=== PATIENT | female | born 1985 | race Caucasian/White ===

== ENCOUNTER 2022-03-30 13:12 | Emergency (ER) | payer OTHER ==
[2022-03-30 13:19] VITALS: BP 125/88
--- NOTE | 2022-03-30 14:26 | ED Physician Documentation ---
PD HPI LOWER EXT INJURY - Stated complaint Stated Complaint: LT LEG PX/STIFFNESS - Chief complaint Chief Complaint: Ext Problem - History obtained from History obtained from: Patient - History of Present Illness PD HPI LOW EXT INJURY LOCATION: Left, Thigh (and inguinal area) Type of injury: Other (she was doing lift of about 80 lbs, with legs straight (slightly flexed) and bending over. She felt onset of a pain in left inguinal area that extends to left lower abdomen and anterior left thigh, with slight numbness feeling anterior upper thigh.). No: Fall Where injury occurred: Other (working out at gym.) Timing - onset: Yesterday Timing - duration: Days (1) Timing - details: Abrupt onset, Still present Worsened by: Moving (stepping/walking and lifting leg/thigh.) Associated symptoms: Numbness (some numbness/tingling anterior upper thigh. No weakness but hurting with stepping and rotational movement of leg/hip.). No: Weakness Similar symptoms before: Has not had sx before Recently seen: Not recently seen Review of Systems Skin: denies: Rash, Lesions Neurologic: reports: Numbness. denies: Focal weakness PD PAST MEDICAL HISTORY - Past Medical History Musculoskeletal: None - Allergies Allergies/Adverse Reactions: Allergies Allergy/AdvReac Type Severity Reaction Status Date / Time No Known Drug Allergies Allergy Verified 03/30/22 13:19 PD ED PE NORMAL - Vitals Vital signs reviewed: Yes - General General: Alert and oriented X 3, No acute distress, Well developed/nourished - Derm Derm: Normal color, Warm and dry - Extremities Extremities: No edema, No calf tenderness / cord, Other (left inguinal area tender in inguinal canal area without hernia noted with abd muscle tightening. no redness/rash/sores. She is able to flex hip against resistance without pain, but hurts with crossing leg medially and with rotation medially. ) - Neuro Neuro: Alert and oriented X 3, No motor deficit Results - Vitals Vitals: Vital Signs - 24 hr 03/30/22 13:15 Temperature 36.4 C L Heart Rate 62 Respiratory 14 Rate Blood Pressure 125/88 H O2 Saturation 92 Oxygen O2 Source Room air PD Medical Decision Making - ED course Complexity details: considered differential (seems inguinal strain. Consider psoas muscle but not hurting as much with just flexion. more rotational and with stepping, so consider more likely pectineus or sartorius. The injury is putting pressure on anterior femoral cutaneous nerve with the numbness of upper thigh.), d/w patient Departure - Departure Disposition: 01 Home, Self Care Clinical Impression: Strain of left inguinal region Condition: Stable Record reviewed to determine appropriate education?: Yes Instructions: ED Strain Groin Follow-Up: [facility] [Provider Group] Comments: I do not get a sense of hernia nor a more significant problem associated with the pain. It seems like a strain of the ligaments and muscles and through the area. Activity as tolerated but I would go lightly with any lifting or repetitive use such as running or jogging for the next 5 or 6 days. Progress activity as tolerated. Stretching and range of motion are okay for the area. Consider using anti- inflammatory such as ibuprofen 600 mg 3 times daily regularly for the next 6 or 7 days. Add Tylenol if needed for pain. I would anticipate steady improvement over the next week or 2 with resolution in that timeframe. Follow-up with your primary care if not improved at all over the next week to decide any other treatment therapies. Discharge Date/Time: 03/30/22 15:06
[2022-03-30] MEDS ORDERED: IBUPROFEN 600 MG TABLET PO STA (14:49)
== END 2022-03-30 15:06 | disposition home or self-care (01) ==
LOC: ED 13:12
DX: S39.011A Strain of muscle, fascia and tendon of abdomen, initial encounter (principal); X58.XXXA Exposure to other specified factors, initial encounter; Y93.B9 Activity, other involving muscle strengthening exercises
CPT/HCPCS: 99282; A9270

== ENCOUNTER 2022-04-28 09:10 | Outpatient (CLI) | payer OTHER ==
[2022-04-28 19:28] LABS: BASOPHILS # (AUTO) 0.1 10^3/uL (0.0-0.1); BASOPHILS % (AUTO) 1.2 %; EOSINOPHILS # (AUTO) 0.1 10^3/uL (0.0-0.7); EOSINOPHILS % (AUTO) 1.9 %; LYMPHOCYTES # (AUTO) 2.5 10^3/uL (1.5-3.5); LYMPHOCYTES % (AUTO) 43.5 %; MEAN CORPUSCULAR HEMOGLOBIN 27.7 pg (27.0-31.0); MEAN CORPUSCULAR HGB CONC 31.7 g/dL (32.0-36.0); MEAN CORPUSCULAR VOLUME 87.2 fL (81.0-99.0); MEAN PLATELET VOLUME 12.9 fL (7.9-10.8); MONOCYTES # (AUTO) 0.4 10^3/uL (0.0-1.0); MONOCYTES % (AUTO) 6.3 %; NEUTROPHILS # (AUTO) 2.8 10^3/uL (1.5-6.6); NEUTROPHILS % (AUTO) 47.1 %; PLT - PLATELET COUNT 193 10^3/uL (130-450); WHITE BLOOD COUNT 5.8 x10^3/uL (4.8-10.8)
[2022-04-28 19:46] LABS: ALBUMIN 4.1 g/dL (3.2-5.5); ALBUMIN/GLOBULIN RATIO 1.2 (1.0-2.2); BILIRUBIN,TOTAL 0.6 mg/dL (0.2-1.0); CALCIUM 9.6 mg/dL (8.5-10.3); CREATININE 0.7 mg/dL (0.4-1.0); POTASSIUM 4.5 mmol/L (3.5-5.0); TOTAL PROTEIN 7.4 g/dL (6.7-8.2)
[2022-04-28 19:55] LABS: THYROID STIMULATING HORMONE 1.77 uIU/mL (0.34-5.60)
[2022-04-28 19:58] LABS: FERRITIN 16.4 ng/mL (11.0-306.8)
== END 2022-04-28 09:11 | disposition home or self-care (01) ==
LOC: LAB.N 09:10
PROVIDERS: ATTEND Physician Assistant
DX: R53.83 Other fatigue (principal)
CPT/HCPCS: 36415; 80053; 82306; 82728; 83540; 84443; 84466; 85025

== ENCOUNTER 2023-01-14 18:19 | Outpatient (CLI) | payer OTHER ==
--- NOTE | 2023-01-15 16:00 | XRAY Report ---
PROCEDURE: Hip w/Pelvis 2-3V LT INDICATIONS: HIP PAIN, LEFT TECHNIQUE: AP pelvis with lateral view(s) of the left hip(s). COMPARISON: None. FINDINGS: Bones: No fractures or dislocations. No suspicious bony lesions. Mild left hip degenerative arthrit is. Soft tissues: No suspicious soft tissue calcifications or masses. IMPRESSION: Mild left hip degenerative arthritis. Reviewed by: Shelton Downey MD on 01/15/2023 3:59 PM PDT Approved by: Shelton Downey MD on 01/15/2023 3:59 PM PDT Station ID: [id number]
== END 2023-01-14 18:20 | disposition home or self-care (01) ==
LOC: DI 18:19
PROVIDERS: ATTEND Physician Assistant
DX: M16.12 Unilateral primary osteoarthritis, left hip (principal)

== ENCOUNTER 2023-04-24 07:18 | Outpatient (CLI) | payer OTHER ==
--- NOTE | 2023-04-25 09:30 | Ultrasound Report ---
PROCEDURE: Abdomen Limited INDICATIONS: LLQ ABD PAIN TECHNIQUE: Real-time focused scanning was performed of the abdomen, with image documentation. COMPARISONS: None. FINDINGS: The area of subjective pain in the region of the left lower quadrant anterolateral lower abdominal wa ll was interrogated utilizing a high megahertz linear transducer with and without Valsalva. No hernia identified. Mass. IMPRESSION: No hernia or mass is identified corresponding to the area of patient symptoms in the left lower quadr ant Reviewed by: Shelton Downey MD on 04/25/2023 9:28 AM PST Approved by: Shelton Downey MD on 04/25/2023 9:28 AM PST Station ID: [id number]
== END 2023-04-24 07:19 | disposition home or self-care (01) ==
LOC: DI 07:18
PROVIDERS: ATTEND Physician Assistant
DX: R10.32 Left lower quadrant pain (principal); R74.8 Abnormal levels of other serum enzymes
CPT/HCPCS: 36415; 80053; 82977

== ENCOUNTER 2023-04-24 07:33 | Outpatient (CLI) | payer OTHER ==
[2023-04-24 08:14] LABS: ALBUMIN 4.7 g/dL (3.2-5.5); ALBUMIN/GLOBULIN RATIO 1.5 (1.0-2.2); BILIRUBIN,TOTAL 0.4 mg/dL (0.2-1.0); CALCIUM 9.9 mg/dL (8.5-10.3); CREATININE 0.7 mg/dL (0.6-1.3); POTASSIUM 4.3 mmol/L (3.5-4.5); TOTAL PROTEIN 7.9 g/dL (6.4-8.9)
== END 2023-04-24 07:34 | disposition home or self-care (01) ==
LOC: LAB 07:33
PROVIDERS: ATTEND Physician Assistant
DX: R74.8 Abnormal levels of other serum enzymes (principal)
CPT/HCPCS: 36415; 80053; 82977